=== PATIENT | male | born 1940 | race Caucasian/White ===

== ENCOUNTER 2017-01-17 10:33 | Outpatient (CLI) | payer MEDICARE, OTHER | END 2017-01-17 10:34 | disposition home or self-care (01) | DX: N40.1 Benign prostatic hyperplasia with lower urinary tract symptoms (principal) ==

== ENCOUNTER 2019-06-21 19:11 | Outpatient (CLI) | payer MEDICARE, OTHER ==
--- NOTE | 2019-06-21 22:53 | Ultrasound Report ---
Reason: LEG EDEMA RIGHT Procedure Date: 06/21/2019 Accession Number: [id number] / [id number] Procedure: US - Duplex Ext Veins Right CPT Code: FULL RESULT: EXAM: RIGHT LOWER EXTREMITY VENOUS ULTRASOUND EXAM DATE: 06/21/2019 08:10 PM. CLINICAL HISTORY: LEG EDEMA RIGHT. COMPARISON: None. TECHNIQUE: Real-time sonographic vascular imaging was performed by the addiction psychiatrist through the lower extremity utilizing both color-flow and Doppler spectral analysis. Multiple authorization representative static images were saved for review. FINDINGS: Common Femoral Vein (CFV): Normal. CFV-GSV Junction: Normal. Profunda Femoral Vein (PFV): Normal. Femoral Vein (FV) Prox: Normal. Femoral Vein (FV) Mid: Normal. Femoral Vein (FV) Dist: Normal. Popliteal Vein: Normal. Posterior Tibial Veins: Normal. Peroneal Veins: Normal. Contralateral Side CFV: Not evaluated. Other: None. IMPRESSION: No evidence for deep venous thrombosis in the right lower extremity. RADIA
== END 2019-06-21 19:12 | disposition home or self-care (01) ==
LOC: DI 19:11
PROVIDERS: ATTEND Family Medicine
DX: R60.0 Localized edema (principal)

== ENCOUNTER 2021-01-30 10:00 | Emergency (ER) | payer MEDICARE, OTHER ==
[2021-01-30 10:49] LABS: BASOPHILS % (AUTO) 0.5 %; EOSINOPHILS # (AUTO) 0.3 10^3/uL (0.0-0.7); EOSINOPHILS % (AUTO) 4.4 %; HGB - HEMOGLOBIN 16.2 g/dL (14.0-18.0); LYMPHOCYTES # (AUTO) 2.2 10^3/uL (1.5-3.5); LYMPHOCYTES % (AUTO) 37.8 %; MEAN CORPUSCULAR HEMOGLOBIN 30.4 pg (27.0-31.0); MEAN CORPUSCULAR HGB CONC 33.1 g/dL (32.0-36.0); MEAN CORPUSCULAR VOLUME 91.9 fL (80.0-94.0); MEAN PLATELET VOLUME 10.7 fL (7.4-11.4); MONOCYTES # (AUTO) 0.6 10^3/uL (0.0-1.0); MONOCYTES % (AUTO) 9.7 %; NEUTROPHILS # (AUTO) 2.8 10^3/uL (1.5-6.6); NEUTROPHILS % (AUTO) 47.3 %; PLT - PLATELET COUNT 133 10^3/uL (130-450); RED BLOOD COUNT 5.33 10^6/uL (4.70-6.10); RED CELL DISTRIBUTION WIDTH 14.5 % (12.0-15.0); WHITE BLOOD COUNT 5.9 x10^3/uL (4.8-10.8)
--- NOTE | 2021-01-30 10:56 | ED Physician Documentation ---
PD HPI ABD PAIN - Stated complaint Stated Complaint: L ABD PX/CONSTIPATION - Chief complaint Chief Complaint: Abd Pain - History obtained from History obtained from: Patient - History of Present Illness Timing - onset: How many days ago (3) Timing - duration: Days (3) Timing - details: Gradual onset, Still present Quality: Cramping, Aching, Pain Location: LLQ Radiation: No: Lower back, Left flank Improved by: Laying still. No: Eating Worsened by: Moving, Palpation. No: Eating, Breathing Associated symptoms: Nausea, Constipation (had had constipation for 3-4 days and then had just small amount liquid stool out yesterday without any change in pain), Loss of appetite. No: Fever, Vomiting, Dysuria, Chest pain, Weight loss Similar symptoms before: Diagnosis (has had diverticulitis few times in the past with similar symptoms. No prior surgery nor hospitalization.) Recently seen: Not recently seen Review of Systems Constitutional: denies: Fever, Chills, Myalgias Nose: denies: Rhinorrhea / runny nose, Congestion Throat: denies: Sore throat Respiratory: denies: Cough GI: reports: Abdominal Pain, Nausea, Constipation. denies: Abdominal Swelling, Vomiting, Diarrhea : denies: Dysuria, Frequency Skin: denies: Rash Neurologic: denies: Focal weakness, Numbness PD PAST MEDICAL HISTORY - Past Medical History Past Medical History: Yes Cardiovascular: None Respiratory: None Neuro: None GI: Diverticulitis - Past Surgical History Past Surgical History: Yes - Present Medications Home Medications: Ambulatory Orders Medication Instructions Recorded Confirmed Benzonatate [Tessalon Perle] 100 mg PO BID PRN #20 capsule 09/24/13 Dutasteride [Avodart] 0.5 mg PO DAILY 09/24/13 09/24/13 Levofloxacin [Levaquin] 500 mg PO DAILY #10 tablet 09/24/13 Tamsulosin [Flomax] 0.4 mg PO DAILY 09/24/13 09/24/13 Docusate Sodium 100Mg Capsule 100 mg PO DAILY #10 cap 01/30/21 [Colace 100Mg Capsule] Naproxen Sodium [Anaprox Ds] 550 mg PO BID #20 tablet 01/30/21 cephALEXin [Keflex] 500 mg PO TID #20 cap 01/30/21 metroNIDAZOLE [Flagyl] 500 mg PO BID #14 tablet 01/30/21 - Allergies Allergies/Adverse Reactions: Allergies Allergy/AdvReac Type Severity Reaction Status Date / Time No Known Drug Allergies Allergy Verified 01/30/21 10:19 - Social History Does the pt smoke?: No Smoking Status: Never smoker Does the pt drink ETOH?: Yes ETOH Use: Wine, Liquor Does the pt have substance abuse?: No - Immunizations Immunizations are current?: Yes - POLST Patient has POLST: No PD ED PE NORMAL - Vitals Vital signs reviewed: Yes - General General: Alert and oriented X 3, No acute distress, Well developed/nourished - HEENT HEENT: Pharynx benign - Neck Neck: Supple, no meningeal sign, No adenopathy - Cardiac Cardiac: RRR, No murmur - Respiratory Respiratory: Clear bilaterally - Abdomen Abdomen: Normal bowel sounds, Soft, Non distended, No organomegaly, Other (tender locally LLQ with some guarding but no rebound, referred, nor percussion tenderness. ) - Male Male : Deferred - Rectal Rectal: Deferred - Back Back: No CVA TTP - Derm Derm: Normal color, Warm and dry - Extremities Extremities: No tenderness to palpate, No edema, No calf tenderness / cord - Neuro Neuro: Alert and oriented X 3, No motor deficit, Normal speech Results - Vitals Vitals: Vital Signs - 24 hr 01/30/21 01/30/21 01/30/21 10:14 10:51 12:20 Temperature 36.1 C L Heart Rate 64 62 61 Respiratory 16 19 16 Rate Blood Pressure 142/64 H 162/83 H 149/77 H O2 Saturation 99 100 100 Oxygen O2 Source Room air - Labs Labs: Laboratory Tests 01/30/21 01/30/21 01/30/21 10:35 10:35 10:45 WBC 5.9 RBC 5.33 Hgb 16.2 Hct 49.0 MCV 91.9 MCH 30.4 MCHC 33.1 RDW 14.5 Plt Count 133 MPV 10.7 Neut # (Auto) 2.8 Lymph # (Auto) 2.2 Ware # (Auto) 0.6 Eos # (Auto) 0.3 Baso # (Auto) 0.0 Absolute Nucleated RBC 0.00 Nucleated RBC % 0.0 Sodium 138 Potassium 4.6 Chloride 100 L Carbon Dioxide 29 Anion Gap 9.0 BUN 19 Creatinine 1.1 Estimated GFR (MDRD) 65 L Glucose 126 H Calcium 9.2 Total Bilirubin 1.6 H AST 38 ALT 70 H Alkaline Phosphatase 104 Total Protein 7.2 Albumin 3.7 Globulin 3.5 Albumin/Globulin Ratio 1.1 Lipase 24 Urine Color YELLOW Urine Clarity CLEAR Urine pH 6.0 Ur Specific [place] 1.010 Urine Protein NEGATIVE Urine Glucose (UA) NEGATIVE Urine Ketones NEGATIVE Urine Occult Blood TRACE-INTA Urine Nitrite NEGATIVE Urine Bilirubin NEGATIVE Urine Urobilinogen 1 (NORMAL) Ur Leukocyte Esterase NEGATIVE Ur Microscopic Review NOT INDICATED Urine Culture Comments NOT INDICATED PD MEDICAL DECISION MAKING - ED course Complexity details: considered differential (The patient has had several days to a week of left lower abdominal pain consistent with prior diverticulitis episodes. He feels it is similar. His exam and symptoms do not sound like complicated diverticulitis. Shared decision was to treat empirically.), d/w patient Departure - Departure Disposition: Home, Self Care Clinical Impression: Left sided abdominal pain, Acute diverticulitis Condition: Stable Record reviewed to determine appropriate education?: Yes Instructions: ED Diverticulitis Follow-Up: Luis Miguel Agarwal MD [Emergency Provider] - Prescriptions: Naproxen Sodium [Anaprox Ds] 550 mg PO BID #20 tablet Docusate Sodium 100Mg Capsule [Colace 100Mg Capsule] 100 mg PO DAILY #10 cap metroNIDAZOLE [Flagyl] 500 mg PO BID #14 tablet cephALEXin [Keflex] 500 mg PO TID #20 cap Comments: Stay well-hydrated. Use an anti-inflammatory such as naproxen twice daily with food. Add to that add Tylenol if needed for pain. Docusate stool softener daily for the next week or so. Antibiotics of metronidazole and cephalexin as directed for the next week. I would anticipate improvement over the next several days and resolution by 3 to 5 days. Recheck if not better in that timeframe and return if worsening. Discharge Date/Time: 01/30/21 12:59
[2021-01-30 10:57] LABS: ALBUMIN 3.7 g/dL (3.2-5.5); ALBUMIN/GLOBULIN RATIO 1.1 (1.0-2.2); BILIRUBIN,TOTAL 1.6 mg/dL (0.2-1.0); CALCIUM 9.2 mg/dL (8.5-10.3); CREATININE 1.1 mg/dL (0.6-1.2); POTASSIUM 4.6 mmol/L (3.5-5.0); TOTAL PROTEIN 7.2 g/dL (6.7-8.2)
[2021-01-30 11:07] LABS: BILIRUBIN,URINE NEGATIVE (NEGATIVE); GLUCOSE, URINE (UA) NEGATIVE (NEGATIVE); KETONES,URINE (UA) NEGATIVE (NEGATIVE); LEUKOCYTE ESTERASE, URINE NEGATIVE (NEGATIVE); NITRITE,URINE NEGATIVE (NEGATIVE); OCCULT BLOOD,URINE TRACE-INTA (NEGATIVE); PROTEIN,URINE NEGATIVE (NEGATIVE); UROBILINOGEN,URINE 1 (NORMAL) E.U./dL (NORMAL)
[2021-01-30 11:15] LABS: CLARITY,URINE CLEAR (CLEAR)
[2021-01-30] MEDS ORDERED: metroNIDAZOLE 250 MG TABLET PO STA (11:30)
[2021-01-30] MEDS ORDERED: KETOROLAC 30 MG/ML VIAL IVP STA (11:30)
[2021-01-30] MEDS ORDERED: cefTRIAXone 1 GM VIAL IVP STA (11:30)
[2021-01-30] MEDS ORDERED: SODIUM CHLORIDE 0.9% 1,000 ML IV STA (11:30)
[2021-01-30 12:22] VITALS: BP 149/77
== END 2021-01-30 12:59 | disposition home or self-care (01) ==
LOC: ED 10:00
DX: K57.92 Diverticulitis of intestine, part unspecified, without perforation or abscess without bleeding (principal)
CPT/HCPCS: 36415; 80053; 81003; 83690; 85025; 96374; 96375; 99284; A9270; 81001; 87086

== ENCOUNTER 2022-02-16 15:42 | Outpatient (CLI) | payer MEDICARE, OTHER | END 2022-02-16 15:43 | disposition home or self-care (01) | LOC: LAB 15:42 | PROVIDERS: ATTEND Urology | DX: N40.1 Benign prostatic hyperplasia with lower urinary tract symptoms (principal) | CPT/HCPCS: 36415; 84153 ==

== ENCOUNTER 2023-01-08 09:43 | Emergency (ER) | payer MEDICARE, OTHER ==
[2023-01-08] MEDS ORDERED: DEXAMETHASONE 10 MG/ML VIAL PO STA (10:20)
[2023-01-08] MEDS ORDERED: CHERRY SYRUP 10 ML UDC PO ONE (10:20)
[2023-01-08] MEDS ORDERED: IPRATROPIUM/ALBUTEROL 3 ML NEB INH STA (10:20)
--- NOTE | 2023-01-08 10:23 | ED Physician Documentation ---
PD HPI URI - Stated complaint Stated Complaint: SEVERE COLD, RESP ISSUES - Chief complaint Chief Complaint: General - History obtained from History obtained from: Patient, Family - History of Present Illness Timing - onset: How many weeks ago (1) Timing duration: Weeks (1) Timing details: Gradual onset, Still present Associated symptoms: Fever, Nasal congestion, Rhinorrhea, Productive cough, Dyspnea Contributing factors: Sick contact (neighbor in [place] with pneumonia) Improves by: Rest, Medication Similar symptoms before: Diagnosis (pneumonia last in 2014) Recently seen: Not recently seen - Additional information Additional information: A healthy 82-year-old Luis Miguel james presents to the emergency department this morning with a cough persistent over the past week. He had typical nasal congestion with cough beginning 1 week ago he has had intermittent fever he has had the persistence of production of phlegm and has had some difficulty getting a full deep breath. He presents to the emergency department after his respiratory illness has persisted instead resolving. He is coughing up some yellow phlegm. He does not usually use inhalers or bronchodilators. He does not take any medications regularly has no known drug allergies usually golfs 3 times a week. Review of Systems Constitutional: reports: Fever Eyes: denies: Decreased vision Ears: denies: Loss of hearing, Ear pain Nose: reports: Rhinorrhea / runny nose, Congestion Throat: reports: Sore throat (Resolved) Cardiac: denies: Chest pain / pressure, Palpitations, Pedal edema, Calf pain Respiratory: reports: Dyspnea, Cough GI: denies: Vomiting, Diarrhea : denies: Dysuria, Frequency PD PAST MEDICAL HISTORY - Past Medical History Cardiovascular: None Respiratory: None Neuro: None GI: Diverticulitis - Past Surgical History Past Surgical History: Yes - Present Medications Home Medications: Ambulatory Orders Medication Instructions Recorded Confirmed Benzonatate [Tessalon Perle] 100 mg PO BID PRN #20 capsule 09/24/13 Dutasteride [Avodart] 0.5 mg PO DAILY 09/24/13 09/24/13 Levofloxacin [Levaquin] 500 mg PO DAILY #10 tablet 09/24/13 Tamsulosin [Flomax] 0.4 mg PO DAILY 09/24/13 09/24/13 Docusate Sodium 100Mg Capsule 100 mg PO DAILY #10 cap 01/30/21 [Colace 100Mg Capsule] Naproxen Sodium [Anaprox Ds] 550 mg PO BID #20 tablet 01/30/21 cephALEXin [Keflex] 500 mg PO TID #20 cap 01/30/21 metroNIDAZOLE [Flagyl] 500 mg PO BID #14 tablet 01/30/21 Albuterol Sulf [Ventolin Hfa 1 - 2 puffs INH Q4HR PRN #1 each 01/08/23 Inhaler] Amox/Clav 875/125 [Augmentin] 1 each PO Q12H #20 tablet 01/08/23 Azithromycin [Zithromax] 250 mg PO DAILY #6 tablet 01/08/23 Benzonatate [Tessalon] 100 - 200 mg PO TID PRN #30 cap 01/08/23 - Allergies Allergies/Adverse Reactions: Allergies Allergy/AdvReac Type Severity Reaction Status Date / Time No Known Drug Allergies Allergy Verified 01/30/21 10:19 - Social History Does the pt smoke?: No Smoking Status: Never smoker Does the pt drink ETOH?: Yes Does the pt have substance abuse?: No - Immunizations Immunizations are current?: Yes - POLST Patient has POLST: No PD ED PE NORMAL - Vitals Vital signs reviewed: Yes (Hypertensive mild) - General General: Alert and oriented X 3, No acute distress, Well developed/nourished - HEENT HEENT: Atraumatic, PERRL, EOMI, Ears normal, Moist mucous membranes, Pharynx benign, Dentition benign - Neck Neck: Supple, no meningeal sign, No bony TTP - Cardiac Cardiac: RRR, No murmur - Respiratory Respiratory: No respiratory distress, Other (Diminished breath sounds bilaterally with cough with each breath.) - Abdomen Abdomen: Soft, Non tender - Back Back: No CVA TTP, No spinal TTP - Derm Derm: Normal color, Warm and dry, No rash - Extremities Extremities: No deformity, No edema - Neuro Neuro: Alert and oriented X 3, environmental services attendant 2-12 intact, No motor deficit, No sensory deficit, Normal speech Eye Opening: Spontaneous Motor: Obeys Commands Verbal: Oriented GCS Score: 15 - Psych Psych: Normal mood, Normal affect Results - Vitals Vitals: Vital Signs - 24 hr 01/08/23 01/08/23 01/08/23 09:54 10:30 10:33 Temperature 36.7 C Heart Rate 81 84 90 Respiratory 22 16 20 Rate Blood Pressure 143/72 H 142/67 H O2 Saturation 100 100 04/15/23 12:00 Temperature Heart Rate 72 Respiratory 16 Rate Blood Pressure 136/73 H O2 Saturation 93 Oxygen O2 Source Room air - Labs Labs: Laboratory Tests 01/08/23 10:30 Nasal Adenovirus (PCR) NOT DETECTED Nasal B. parapertussis DNA (PCR) NOT DETECTED Nasal Coronavir 229E PCR NOT DETECTED Nasal Coronavir HKU1 PCR NOT DETECTED Nasal Coronavir NL63 PCR NOT DETECTED Nasal Coronavir OC43 PCR NOT DETECTED Nasal Enterovir/Rhinovir PCR NOT DETECTED Nasal Influenza B PCR NOT DETECTED Nasal Influenza A PCR NOT DETECTED Nasal Parainfluen 1 PCR NOT DETECTED Nasal Parainfluen 2 PCR NOT DETECTED Nasal Parainfluen 3 PCR NOT DETECTED Nasal Parainfluen 4 PCR NOT DETECTED Nasal RSV (PCR) NOT DETECTED Nasal B.pertussis DNA PCR NOT DETECTED Nasal C.pneumoniae (PCR) NOT DETECTED Brodie Human Metapneumo PCR DETECTED A Nasal M.pneumoniae (PCR) NOT DETECTED Nasal SARS-CoV-2 (PCR) NOT DETECTED - Rads (name of study) chest Relevant Findings:: Prelim report reviewed (Impression: No acute cardiopulmonary pathology. Suggestion of large hiatal hernia.), EMP independent interpretation of test PD Medical Decision Making - ED course Complexity details: reviewed old records, reviewed results, re-evaluated patient, considered differential, d/w patient, d/w family Reviewed Lab Results: 82-year-old Luis Miguel Banda has a history of community-acquired pneumonia and he has now developed a cough and congestion is bringing up yellow-green phlegm has some shortness of breath associated with this and he has improvement with bronchodilator. His chest x-ray shows a large hiatal hernia and he does have bilateral hilar hilar streaking consistent with infection. His nasal smear was positive for human metapneumovirus. ED course: 82-year-old male presenting to the emerged part with cough and congestion bringing up phlegm with a history of pneumonia. He has improvement with use of a DuoNeb treatment he is administered both dexamethasone and Rocephin here in the emergency department as well. His chest x-ray has some hilar streaking and we are treating him for community-acquired pneumonia and it looks like the underlying cause of all this is human metapneumovirus. Departure - Departure Disposition: 01 Home, Self Care Clinical Impression: Human metapneumovirus (hMPV) pneumonia Condition: Stable Instructions: ED Pneumonia Adult, ED URI Viral Follow-Up: Shannan Alegria ARNP [Primary Care Provider] - Prescriptions: Albuterol Sulf [Ventolin Hfa Inhaler] 1 - 2 puffs INH Q4HR PRN #1 each PRN Reason: Shortness Of Air/Wheezing Amox/Clav 875/125 [Augmentin] 1 each PO Q12H #20 tablet Benzonatate [Tessalon] 100 - 200 mg PO TID PRN #30 cap PRN Reason: Cough Azithromycin [Zithromax] 250 mg PO DAILY #6 tablet Comments: Luis Miguel, today looks like you have have a viral infection with human metapneumovirus. It looks like there is superinfection on top of this and that is usually a bacterial process. I have E scribed some antibiotics for treatment of this to the [facility] in [place]. I have also E scribed some bronchodilator the albuterol inhaler and some Tessalon Perles for cough suppressant. Expectation with treatment is daily improvement decreased secretions decreased cough and eventual resolution.
--- NOTE | 2023-01-08 10:44 | XRAY Report ---
PROCEDURE: Chest 1 View X-Ray INDICATIONS: cough soa TECHNIQUE: One view of the chest was acquired. COMPARISON: 09/24/2013. FINDINGS: Surgical changes and devices: None. Lungs and pleura: No pleural effusions or pneumothorax. Lungs are clear. Mediastinum: Mediastinal contours appear normal. Heart size is normal. There is suggestion of a lar ge hiatal hernia. Bones and chest wall: No suspicious bony lesions. Overlying soft tissues appear unremarkable. IMPRESSION: No acute cardiopulmonary pathology. Suggestion of large hiatal hernia. Reviewed by: Giovanny Samuel MD on 01/08/2023 10:43 AM PDT Approved by: Giovanny Samuel MD on 01/08/2023 10:43 AM PDT Station ID: [id number]
[2023-01-08] MEDS ORDERED: cefTRIAXone 1 GM VIAL IM STA (11:02)
[2023-01-08] MEDS ORDERED: LIDOCAINE 1% 2 ML VIAL MC ONE (11:02)
[2023-01-08 11:29] LABS: B. PARAPERTUSSIS- RESP PCR PAN NOT DETECTED; B. PERTUSSIS- RESP PCR PANEL NOT DETECTED; C. PNEUMONIAE- RESP PCR PANEL NOT DETECTED; CORONAVIRUS 229E-RESP PCR NOT DETECTED; CORONAVIRUS HKU1-RESP PCR NOT DETECTED; CORONAVIRUS NL63-RESP PCR NOT DETECTED; CORONAVIRUS OC43-RESP PCR NOT DETECTED; HUMAN METAPNEUMOVIRUS DETECTED; INFLUENZA A- RESP PCR PANEL NOT DETECTED; INFLUENZA B - RESP PCR PANEL NOT DETECTED; M. PNEUMONIAE- RESP PCR PANEL NOT DETECTED; PARAINFLUENZA VIRUS 1 NOT DETECTED; PARAINFLUENZA VIRUS 2 NOT DETECTED; PARAINFLUENZA VIRUS 3 NOT DETECTED; PARAINFLUENZA VIRUS 4 NOT DETECTED; RHINOVIRUS/ENTEROVIRUS NOT DETECTED; RSV- RESP PCR PANEL NOT DETECTED; SARS-CoV-2 -RESP PCR PANEL NOT DETECTED
[2023-01-08 12:46] VITALS: BP 132/66
== END 2023-01-08 12:46 | disposition home or self-care (01) ==
LOC: ED 09:43
DX: J12.3 Human metapneumovirus pneumonia (principal); Z20.822 Contact with and (suspected) exposure to COVID-19
CPT/HCPCS: 71045; 87633; 94640; 94664; 96372; 99284; A9270

== ENCOUNTER 2024-02-09 08:00 | Outpatient (CLI) | payer MEDICARE, OTHER | END 2024-02-09 23:59 | disposition home or self-care (01) | LOC: LAB 08:00 | PROVIDERS: ATTEND Physician Assistant | DX: N30.00 Acute cystitis without hematuria (principal) | CPT/HCPCS: 87086; 87181 ==